=== PATIENT | female | born 1960 | race American Indian/Alaskan Native ===

== ENCOUNTER 2023-10-23 13:21 | Emergency (ER) | payer BC, SELFPAY ==
[2023-10-23 13:22] VITALS: BP 142/109
[2023-10-23 14:27] VITALS: BP 171/76
[2023-10-23 14:34] VITALS: BMI 24.7
[2023-10-23] MEDS: NSS 1000 IV (14:37)
[2023-10-23 14:40] LABS: % Basophils 0.2 % (0-2); % Eosinophils 1.1 % (0-6); % Immature Granulocytes 0.3 % (0-0.5); % Lymphocytes 17.4 % (20.5-51.1); % Monocytes 6.1 % (1.7-9.3); % Neutrophils 74.9 % (42.2-75.2); Absolute Eosinophils 0.2 10^3/uL (0-0.7); Absolute Lymphocytes 2.5 10^3/uL (1.2-3.4); Absolute Monocytes 0.9 10^3/uL (0.1-0.6); Absolute Neutrophils 10.6 10^3/uL (1.4-6.5); Hematocrit 35.6 % (37.0-47.0); Hemoglobin 11.8 g/dL (12.0-16.0); Mean Corp Hgb Conc. 33.1 g/dL (33.0-37.0); Mean Corpuscular Hgb 27.6 pg (27.0-31.0); Mean Corpuscular Volume 83.2 fL (81.0-99.0); Mean Platelet Volume 10.1 fL (7.4-10.4); Nucleated Red Blood Cells % 0 %; Platelet Count 217 10^3/uL (130-400); Red Blood Cell Count 4.28 10^6/uL (4.20-5.40); Red Cell Dist. Width 14.6 % (11.5-14.5); White Blood Cell Count 14.1 10^3/uL (4.8-10.8)
[2023-10-23 14:53] LABS: Urine Albumin Trace (Neg - Trace); Urine Bilirubin Negative (Negative); Urine Character Clear (Clear); Urine Color Yellow; Urine Glucose Negative (Negative); Urine Ketone Negative (Negative); Urine Leukocyte Trace (Negative); Urine Nitrite Negative (Negative); Urine Occult Blood 1+ (Negative); Urine Specific Gravity 1.015 (<1.030); Urine Urobilinogen Negative (Neg - 1+)
[2023-10-23 15:00] VITALS: BP 138/69
[2023-10-23 15:00] LABS: ALT (SGPT) 50 U/L (0-35); AST (SGOT) 50 U/L (14-36); Albumin 4.2 g/dl (3.5-5.0); Alkaline Phosphatase 105 U/L (38-126); Blood Urea Nitrogen 13 mg/dl (7-17); Calcium 9.1 mg/dl (8.4-10.2); Carbon Dioxide 27 mmol/L (22-30); Chloride 100 mmol/L (98-107); Estimated Creatinine Clearance 58 ml/min; Glucose 212 mg/dl (70-99); Potassium 4.2 mmol/L (3.5-5.1); Sodium 136 mmol/L (135-145); Total Bilirubin 0.3 mg/dl (0.2-1.3); Total Protein 7.1 g/dl (6.3-8.2); eGFR > 60.00
--- NOTE | 2023-10-23 15:02 | ED.GENMED ---
History of Present Illness
General
Chief Complaint: Abdominal Pain
Source: patient and spouse
Exam Limitations: none
Time Seen by Provider: 10/23/23 13:42
Nursing documentation reviewed up to this point in time: agreed with
History of Present Illness
History of Present Illness:
63-year-old female past medical history of hypertension hyperlipidemia presenting to the emergency department with concerns of constipation over the past few days now developing left upper quadrant pain and believes she may have had a she took
Tylenol prior to arrival. Tried taking a laxative yesterday did have 1 bowel movement. Denies any history of obstructions but does have a history of appendectomy and .
Past History
Past History
ED Past Medical History: None
ED Past Surgical History: None
Social History
Tobacco: Non-smoker
Review of Systems
Review of Systems
Allergies reviewed?: Yes
All Other Systems: ROS reviewed and negative except as documented in HPI and ROS
Phy Exam
Physical Exam
Physical Exam:
GENERAL: Alert , in no apparent distress
EYE: pupils equal and reactive
NECK: Supple, no significant adenopathy.
ENT: o/p clr, mmm.
CARDIAC: Regular rate and rhythm .
LUNGS: Clear breath sounds bilaterally, no acute respiratory distress, no wheezes/rales/rhonchi
ABDOMEN: Left upper quadrant abdominal pain and left mid abdominal pain no lower abdominal pain or right-sided pain.
NEUROLOGICAL: Alert and oriented, no focal neuro deficits
SKIN: Warm and dry, skin intact.
MUSCULOSKELETAL: No edema, well perfused.
PSYCH: Normal and appropriate interaction.
Course
Orders/Labs/Results
Orders:
Orders
10/23/23 14:20
CT Abd/Pel (IV only)-DH only Urgent
Comment:
Reason For Exam: luq pain
0.9% Sodium Chloride 1000 ml [Nss] 1,000 ml IV BOLUS
10/23/23 14:31
Complete Blood Count/With Diff Urgent
Comprehensive Metabolic Panel Urgent
Urinalysis Reflex To Culture Urgent
Date Specimen was Collected: 10/23/23
Time Specimen was Collected: 14:21
Urine Microscopic Reflex Cult Urgent
10/23/23 16:42
Ciprofloxacin HCl [Cipro] 500 mg PO ONCE ONE
Abnormal Lab Results
10/23/23
14:31
WBC 14.1 H 10^3/uL
(4.8-10.8)
Hgb 11.8 L g/dL
(12.0-16.0)
Hct 35.6 L %
(37.0-47.0)
RDW 14.6 H %
(11.5-14.5)
Absolute Neuts (auto) 10.6 H 10^3/uL
(1.4-6.5)
Absolute Monos (auto) 0.9 H 10^3/uL
(0.1-0.6)
Lymphocytes % 17.4 L %
(20.5-51.1)
Glucose 212 H mg/dl
(70-99)
AST 50 H U/L
(14-36)
ALT 50 H U/L
(0-35)
Ur Occult Blood Reflex 1+ A
(Negative)
Leukocyte Esterase Rfl Trace A
(Negative)
Urine Bacteria (Reflex) Few A
(Negative)
10/23/23 14:31
10/23/23 14:31
Vital Signs
Initial and Last Documented VS:
Initial Vital Signs
Temp Pulse Resp BP Pulse Ox
100 F 81 18 142/109 98
10/23/23 13:22 10/23/23 13:22 10/23/23 13:22 10/23/23 13:22 10/23/23 13:22
Last Documented Vital Signs
Temp Pulse Resp BP Pulse Ox
100 F 81 18 171/76 96
10/23/23 13:22 10/23/23 13:22 10/23/23 13:22 10/23/23 14:27 10/23/23 14:34
MDM/Problems Addressed
MDM/Problems Addressed:
63-year-old female presenting to the emergency department today with concerns of left lower quadrant abdominal pain and fevers worsening over the past 2 days preceded by constipation. Here she does have reproducible pain temperature of 100 even
otherwise vital signs normal. White count of 14.1 labs showing elevated sugar level. Patient generally well-appearing here slight white count of 14.1. CT scan showing colitis. Unclear source but claims that she may have had a fever at home
considering this concern for infectious colitis plan to treat with antibiotic otherwise close outpatient follow-up. Return precautions given.
*Critical Care Note
Total Time (30-74mins, 75-104mins- exclusive of procedures): Not Applicable
ED Attending Note
-
Portions of this chart may have been created with voice recognition software.� Occasional wrong word or��sound alike� substitutions may have occurred due to the inherent limitations of voice recognition software.
Discharge Plan
Departure
Patient Disposition: Home (Routine Discharge)
Date of Disposition: 10/23/23
Time of Disposition: 16:48
Patient with high blood pressure during this ER visit?: No
Condition: Good
Covid-19: Not Applicable
Discharge Problem:
Colitis
Instructions: Colitis (DC)
Prescriptions:
New
ciprofloxacin HCl 500 mg tablet
500 mg PO BID 5 Days Qty: 10 0RF
Referrals:
Yonny Ordonez MD [Family Provider] -
Farhad Lanier MD [Active] - Follow up in 10 days
Activity Restrictions/Additional Instructions:
You came to the emergency department today with concerns of abdominal discomfort. You are found to have colitis. Please take ciprofloxacin twice daily for the next 5 days and follow-up closely with GI. Return to the emergency department for any
worsening, new or concerning symptoms.
Interventions
Interventions:
*Risk Screen - Suicide Last Done: 10/23/23 13:22
*General Assessment Last Done: 10/23/23 13:22
*Neglect/Abuse Screening Last Done: 10/23/23 13:22
ED- Fall Risk Assessment Last Done: 10/23/23 14:34
*ED COVID-19 Vaccine History Last Done: 10/23/23 14:34
LP-Aegbur-Vfjcfikwph Assessment Last Done: 10/23/23 14:34
Discharge Date and Time
Print Language: MICRONESIAN
[2023-10-23 15:17] LABS: Urine Squamous Cell >30 /LPF (Few)
[2023-10-23 15:18] LABS: Urine Red Blood Cell 0-2 /HPF (0-2)
[2023-10-23 15:19] LABS: Urine Bacteria Few (Negative); Urine Mucus Few
[2023-10-23] MEDS: CIPRO 500 MG PO (16:53)
[2023-10-23 16:56] VITALS: BP 136/81
== END 2023-10-23 16:57 | disposition home or self-care (01) ==
LOC: EMR 13:21
PROVIDERS: Physician Assistant; EMERGENCY PHYSICIAN Emergency Medicine; FAMILY PHYSICIAN Internal Medicine
DX: K52.9 Noninfective gastroenteritis and colitis, unspecified (principal); I10 Essential (primary) hypertension; E78.5 Hyperlipidemia, unspecified; Z88.0 Allergy status to penicillin; Z91.040 Latex allergy status
CPT/HCPCS: 99285; 96360; 74177; 80053; 81003; 81015; 85025; Q9967